=== PATIENT | male | born 1975 | race Caucasian/White ===

== ENCOUNTER 2017-07-17 11:50 | Emergency (ER) | payer BC ==
[2017-07-17 12:29] VITALS: TEMP 98.5
[2017-07-17] MEDS ORDERED: HYDROcodone/APAP 5-325MG 1 EACH TAB PO STA (12:39)
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
--- NOTE | 2017-07-17 13:04 | XR ---
EXAMINATION TYPE: XR elbow complete RT DATE OF EXAM: 07/17/2017 CLINICAL HISTORY: pain TECHNIQUE: Frontal, lateral and oblique images of the right elbow are obtained. COMPARISON: None. FINDINGS: There is no acute fracture/dislocation evident of the elbow. No abnormal fat pad signs ar e seen. The overlying soft tissue appears unremarkable. IMPRESSION: There is no acute fracture or dislocation of the elbow. ICD 10 NO FRACTURE, INITIAL EVALUATION
--- NOTE | 2017-07-17 13:06 | XR ---
EXAMINATION TYPE: XR ribs RT w pa chest xray DATE OF EXAM: 07/17/2017 COMPARISON: NONE HISTORY: Pain TECHNIQUE: Single view of the chest 4 views of the ribs are submitted. FINDINGS: The lungs are clear. No Evidence for pneumothorax. No evidence for focal contusion. Medi astinal structures are midline. Evaluation of the ribs fails to demonstrate evidence for displaced r ib fracture or secondary sign of rib fracture. IMPRESSION: Negative study
[2017-07-17 13:43] VITALS: BP 117/72; PULSE 83; RESP 16
== END 2017-07-17 13:49 | disposition home or self-care (01) ==
LOC: EC 11:50
DX: S20.221A Contusion of right back wall of thorax, initial encounter (principal); M25.521 Pain in right elbow; F17.200 Nicotine dependence, unspecified, uncomplicated; Z88.1 Allergy status to other antibiotic agents; Z88.2 Allergy status to sulfonamides; Z91.013 Allergy to seafood; W10.9XXA Fall (on) (from) unspecified stairs and steps, initial encounter; Y92.008 Other place in unspecified non-institutional (private) residence as the place of occurrence of the external cause
CPT/HCPCS: 99283

== ENCOUNTER 2018-04-09 22:57 | Emergency (ER) | payer SELFPAY ==
[2018-04-09 23:04] VITALS: BP 153/90; PULSE 98; RESP 18; TEMP 98.2
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
== END 2018-04-09 23:50 | disposition home or self-care (01) ==
LOC: EC 22:57
DX: S51.832A Puncture wound without foreign body of left forearm, initial encounter (principal); J32.9 Chronic sinusitis, unspecified; M79.1 Myalgia; F17.200 Nicotine dependence, unspecified, uncomplicated; Z86.14 Personal history of Methicillin resistant Staphylococcus aureus infection; Z91.013 Allergy to seafood; Z88.2 Allergy status to sulfonamides; W55.01XA Bitten by cat, initial encounter
CPT/HCPCS: 99283

== ENCOUNTER 2018-11-01 13:09 | Emergency (ER) | payer BC ==
[2018-11-01 13:31] VITALS: BP 114/68; PULSE 96; RESP 18; TEMP 98.2
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
--- NOTE | 2018-11-01 14:45 | XR ---
EXAMINATION TYPE: XR Hip RT and AP Pelvis DATE OF EXAM: 11/01/2018 COMPARISON: None HISTORY: Fall on ice TECHNIQUE: Frontal AP pelvis is obtained. Right hip is examined in 2 views. FINDINGS: Normal bowel gas is within the [id number] The femoral heads articulate with the acetabulum. Symphysis pubis and pubic rami appear normal. Sacro iliac joints are unremarkable Femoral head articulates with the acetabulum. No acute right hip fractures are evident. IMPRESSION: 1. No acute fractures right hip
--- NOTE | 2018-11-01 14:46 | XR ---
EXAMINATION TYPE: XR lumbar spine 2 or 3V DATE OF EXAM: 11/01/2018 COMPARISON: None HISTORY: Fall on ice, pain TECHNIQUE: Three-view lumbar spine FINDINGS: There 5 lumbar-type vertebral bodies. Pedicles are intact. Disc heights are preserved. Vert ebral body heights are preserved. Alignment is normal. T12 ribs are rudimentary. IMPRESSION: 1. Normal three-view lumbar spine.
--- NOTE | 2018-11-01 14:47 | XR ---
EXAMINATION TYPE: XR chest 2V DATE OF EXAM: 11/01/2018 COMPARISON: None INDICATION: Pain fall on ice rib pain TECHNIQUE: Frontal and lateral views of the chest are obtained. FINDINGS: The heart size is normal. The pulmonary vasculature is normal. The lungs are clear. No pneumothorax is evident. No displaced rib fractures are identified. IMPRESSION: 1. Normal two-view chest.
--- NOTE | 2018-11-01 14:48 | XR ---
EXAMINATION TYPE: XR ribs RT DATE OF EXAM: 11/01/2018 COMPARISON: None HISTORY: Fall on ice, pain TECHNIQUE: 2 view right ribs FINDINGS: No acute fractures are evident. No pneumothorax is evident. Exam is compared with the chest film of the same date. IMPRESSION: 1. Normal right ribs 2 views
== END 2018-11-01 15:34 | disposition home or self-care (01) ==
LOC: EC 13:09
DX: S20.211A Contusion of right front wall of thorax, initial encounter (principal); S70.01XA Contusion of right hip, initial encounter; F17.200 Nicotine dependence, unspecified, uncomplicated; Z91.013 Allergy to seafood; Z88.1 Allergy status to other antibiotic agents; Z88.2 Allergy status to sulfonamides; W00.0XXA Fall on same level due to ice and snow, initial encounter
CPT/HCPCS: 71046; 72100; 73502; 99283

== ENCOUNTER 2019-02-13 10:13 | Emergency (ER) | payer BC ==
[2019-02-13 10:18] VITALS: BP 154/98; PULSE 61; RESP 18; TEMP 98.2
[2019-02-13] MEDS ORDERED: PENICILLIN VK 500MG STARTER 4 TAB BTL PO STA (10:27)
[2019-02-13] MEDS ORDERED: IBUPROFEN 600 MG STARTER PACK 4 TAB BTL PO STA (10:27)
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
== END 2019-02-13 10:45 | disposition home or self-care (01) ==
LOC: EC 10:13
DX: K04.7 Periapical abscess without sinus (principal); S02.5XXA Fracture of tooth (traumatic), initial encounter for closed fracture; F17.200 Nicotine dependence, unspecified, uncomplicated; Z88.2 Allergy status to sulfonamides; Z91.013 Allergy to seafood; Z91.041 Radiographic dye allergy status; Z86.14 Personal history of Methicillin resistant Staphylococcus aureus infection; X58.XXXA Exposure to other specified factors, initial encounter
CPT/HCPCS: 99283

== ENCOUNTER 2019-09-22 12:46 | Emergency (ER) | payer BC ==
[2019-09-22 12:54] VITALS: RESP 18
[2019-09-22] MEDS ORDERED: HYDROmorphone 1 MG/ML 1 ML SYRINGE IM STA (13:17)
[2019-09-22] MEDS ORDERED: IBUPROFEN 600 MG TAB PO STA (13:37)
--- NOTE | 2019-09-22 13:43 | XR ---
EXAMINATION TYPE: XR lumbosacral spine min 4V DATE OF EXAM: 09/22/2019 CLINICAL HISTORY: Low back pain for one week with no known injury. Right-sided radiculopathy TECHNIQUE: Frontal, lateral, and oblique images of the lumbar spine are obtained. COMPARISON: 11/01/2018 FINDINGS: There are 5 lumbar type vertebral bodies identified. The lumbar spine shows satisfactory alignment without evidence of acute fracture or dislocation. Vertebral body heights and disk space he ights are within normal limits. Mild intervertebral disc space narrowing at L5-S1. Endplate sclerosis and intervertebral disc space narrowing is also present at L1-L2. The oblique images appear within n ormal limits. The overlying soft tissue appears unremarkable. IMPRESSION: No acute fracture or malalignment is seen in the lumbar spine. Mild degenerative disc di sease at L5-S1 and L1-L2.
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
[2019-09-22 14:04] VITALS: BP 130/93; PULSE 82; TEMP 98.2
== END 2019-09-22 13:55 | disposition home or self-care (01) ==
LOC: EC 12:46
DX: M47.27 Other spondylosis with radiculopathy, lumbosacral region (principal); I10 Essential (primary) hypertension; F17.200 Nicotine dependence, unspecified, uncomplicated; Z88.2 Allergy status to sulfonamides; Z91.013 Allergy to seafood; Z88.1 Allergy status to other antibiotic agents; Z91.041 Radiographic dye allergy status; Z53.20 Procedure and treatment not carried out because of patient's decision for unspecified reasons; Z86.14 Personal history of Methicillin resistant Staphylococcus aureus infection
CPT/HCPCS: 72110; 99283

== ENCOUNTER 2020-01-12 12:55 | Emergency (ER) | payer BC ==
[2020-01-12 13:02] VITALS: BP 165/96; PULSE 75; RESP 18; TEMP 98
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
== END 2020-01-12 13:47 | disposition home or self-care (01) ==
LOC: EC 12:55
DX: B35.4 Tinea corporis (principal); F17.200 Nicotine dependence, unspecified, uncomplicated; Z86.14 Personal history of Methicillin resistant Staphylococcus aureus infection; Z91.013 Allergy to seafood; Z88.2 Allergy status to sulfonamides; Z91.041 Radiographic dye allergy status
CPT/HCPCS: 99282

== ENCOUNTER 2020-01-27 15:43 | Emergency (ER) | payer BC ==
[2020-01-27 16:28] VITALS: BP 118/71; PULSE 101; RESP 18; TEMP 98.1
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
== END 2020-01-27 17:15 | disposition home or self-care (01) ==
LOC: EC 15:43
DX: R21 Rash and other nonspecific skin eruption (principal); F17.200 Nicotine dependence, unspecified, uncomplicated; Z88.2 Allergy status to sulfonamides; Z88.1 Allergy status to other antibiotic agents; Z91.013 Allergy to seafood; Z86.14 Personal history of Methicillin resistant Staphylococcus aureus infection
CPT/HCPCS: 99282

== ENCOUNTER 2022-07-12 18:51 | Emergency (ER) | payer OTHER, BC ==
[2022-07-12 20:04] VITALS: BP 132/72; PULSE 85; RESP 18; TEMP 97.9
--- NOTE | 2022-07-12 20:23 | XR ---
EXAMINATION TYPE: XR elbow complete LT DATE OF EXAM: 07/12/2022 8:13 PM INDICATION: Patient age:Male; 46 years old; Reason for study: Fall, left elbow injury; [facility]. COMPARISON: None TECHNIQUE: The left elbow was examined in AP, lateral, and oblique projections. FINDINGS: No evidence of any acute osseous pathology, joint dislocation, or soft tissue swelling is n oted. No evidence of joint effusion is present. Olecranon process enthesophyte noted. IMPRESSION: No evidence of acute fracture.
[2022-07-12] MEDS ORDERED: ACETAMINOPHEN TAB 500 MG TAB PO STA (20:34)
[2022-07-12] MEDS ORDERED: IBUPROFEN 400 MG TAB PO STA (20:34)
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
== END 2022-07-12 21:56 | disposition home or self-care (01) ==
LOC: EC 18:51
DX: S50.312A Abrasion of left elbow, initial encounter (principal); S50.02XA Contusion of left elbow, initial encounter; I10 Essential (primary) hypertension; F17.200 Nicotine dependence, unspecified, uncomplicated; Z91.013 Allergy to seafood; Z88.2 Allergy status to sulfonamides; Z79.899 Other long term (current) drug therapy; W01.0XXA Fall on same level from slipping, tripping and stumbling without subsequent striking against object, initial encounter
CPT/HCPCS: 99283